=== PATIENT | male | born 1945 | race Caucasian/White ===

== ENCOUNTER 2019-02-20 15:00 | Inpatient (IN) ==
[2019-02-20] MEDS ORDERED: ONDANSETRON 4 MG/2 ML VIAL IV STA (15:47)
[2019-02-20] MEDS ORDERED: AZITHROMYCIN INJ 500 MG in SODIUM CHLORIDE 0.9% 250 ML IV STA (15:47)
[2019-02-20] MEDS ORDERED: SODIUM CHLORIDE 0.9% 500 ML IV STA (15:47)
[2019-02-20] MEDS ORDERED: methylPREDNISolone SOD SUC 125 MG/2 ML VIAL IV STA (15:47)
[2019-02-20] MEDS ORDERED: ALBUTEROL/IPRATROPIUM 3 ML NEB RESP TX STA (15:47)
[2019-02-20 16:12] LABS: Basophils % 0.5 % (0.0-0.8); Eosinophils # 0.1 10*3/uL (0.0-0.87); Eosinophils % 1.4 % (0.00-10.9); Hematocrit 34.8 VOL% (42.0-52.0); Hemoglobin 11.1 GM/DL (14.0-18.0); Immature Granulocytes % 0.7 %; Immature Granulocytes Absolute 0.06 #; Lymphocytes # 1.1 10*3/uL (1.4-4.0); Lymphocytes % 12.4 % (21.2-54.2); Mean Corpuscular HGB Conc 31.9 GM/DL (32-36); Mean Corpuscular Volume 97.5 FL (87-102); Mean Platelet Volume 11.9 FL (9.6-12.0); Monocytes % 10.6 % (1.7-12.7); Neutrophils % 74.4 % (38.7-73.9); Platelet Count 138 T/CUMM (130-400); Red Blood Count 3.57 MC/CUMM (3.8-5.5); Red Cell Distribution Width 12.7 % (9.3-17.3); White Blood Count 8.6 T/CUMM (4-12)
[2019-02-20 16:20] LABS: PT Patient Result 10.4 SECS; Partial Thromboplastin Time 26.4 SECS (0-40)
[2019-02-20 16:34] LABS: Alanine Aminotransferase 34 U/L (16-61); Albumin 2.9 G/DL (3.4-5.0); Alkaline Phosphatase 161 U/L (45-117); Aspartate Amino Transferase 27 U/L (0-37); Blood Urea Nitrogen 40 MG/DL (7-18); Calcium 9.7 MG/DL (8.5-10.1); Glucose 85 MG/DL (74-106); Osmolality,Calculated 289.3 MOS/KG (273-304); Total Protein 7.1 G/DL (6.4-8.3); Troponin I < 0.015 NG/ML (0.00-0.045)
[2019-02-20] MEDS ORDERED: cefTRIAXone 1,000 MG in SODIUM CHLORIDE 0.9% 100 ML IV STA (16:37)
[2019-02-20] MEDS ORDERED: cefTRIAXone 1,000 MG in SYRINGE 1 EACH IV STA (16:42)
[2019-02-20] MEDS ORDERED: POTASSIUM BICARB EFFERVESCENT 25 MEQ TABLET PO ONE (16:48)
[2019-02-20] MEDS ORDERED: DEXTROSE 50% 25 GM/50 ML VIAL IV PRN (17:53)
[2019-02-20] MEDS ORDERED: ACETAMINOPHEN 325 MG TABLET PO PRN (17:53)
[2019-02-20] MEDS ORDERED: GLUCAGON 1 MG VIAL IM PRN (17:53)
[2019-02-20] MEDS ORDERED: ONDANSETRON 4 MG/2 ML VIAL IV PRN (17:53)
[2019-02-20] MEDS: ALBUTEROL/IPRATROPIUM 3 ML NEB RESP TX SCH (20:11)
[2019-02-20] MEDS: METOPROLOL TARTRATE 50 MG TABLET PO SCH (21:02)
[2019-02-20] MEDS: ATORVASTATIN 20 MG TABLET PO SCH (21:03)
[2019-02-20] MEDS: INSULIN REGULAR 100 UNIT/ML SUBCUT SCH (21:05)
[2019-02-21] MEDS: ALBUTEROL/IPRATROPIUM 3 ML NEB RESP TX SCH ×4 (00:46→19:11)
[2019-02-21] MEDS ORDERED: methylPREDNISolone SOD SUC 125 MG/2 ML VIAL IV SCH ×2 (05:00→13:25)
[2019-02-21] MEDS: INSULIN REGULAR 100 UNIT/ML SUBCUT SCH ×4 (08:06→21:00)
[2019-02-21] MEDS: POTASSIUM CHLORIDE 20 MEQ TABLET PO SCH (08:53)
[2019-02-21] MEDS: OLMESARTAN 20 MG TABLET PO SCH (08:53)
[2019-02-21] MEDS: ASPIRIN 325 MG TABLET PO SCH (08:53)
[2019-02-21] MEDS: FUROSEMIDE 40 MG/4 ML VIAL IV SCH (08:54)
[2019-02-21] MEDS: METOPROLOL TARTRATE 50 MG TABLET PO SCH ×2 (08:54→20:59)
[2019-02-21] MEDS: PANTOPRAZOLE 40 MG TABLET PO SCH (08:54)
[2019-02-21] MEDS ORDERED: metOLazone 2.5 MG TABLET PO SCH (09:30)
[2019-02-21] MEDS: FOLIC ACID 0.4 MG TABLET PO SCH (09:51)
[2019-02-21 11:43] LABS: Calcium 9.3 MG/DL (8.5-10.1)
[2019-02-21 12:06] LABS: Apearance,Urine CLEAR (Clear); Bilirubin,Urine Negative (Negative); Blood, Urine Negative (Negative); Glucose,Urine (UA) Negative (Negative); Hyaline Casts,Urine 3 /LPF (0-3); Ketones,Urine Negative (Negative); Mucus,Urine Occasional /LPF (Occasional); Nitrite,Urine Negative (Negative); Protein,Urine Negative; RBC,Urine 1 /HPF (0-4); Squamous Epithelial Cell,Urine Occasional /HPF (0-10); Urine Color Yellow (Yellow); Urine Specific Gravity 1.028 (1.001-1.035); Urine Urobilinogen < 2.0 EU/DL (0.2-1.0); WBC,Urine <1 /HPF (0-6)
[2019-02-21] MEDS: methylPREDNISolone SOD SUC 40 MG/1 ML VIAL IV SCH (14:23)
[2019-02-21] MEDS: AZITHROMYCIN INJ 500 MG in SODIUM CHLORIDE 0.9% 250 ML IV SCH (15:49)
[2019-02-21] MEDS: cefTRIAXone 2,000 MG in SYRINGE 1 EACH IV SCH (18:13)
[2019-02-21] MEDS: ATORVASTATIN 20 MG TABLET PO SCH (20:59)
[2019-02-21] MEDS: TAMSULOSIN 0.4 MG CAPSULE PO SCH (20:59)
[2019-02-21] MEDS: BICALUTAMIDE 50 MG TABLET PO SCH (20:59)
[2019-02-21] MEDS: MEMANTINE 10 MG TABLET PO SCH (20:59)
[2019-02-21] MEDS ORDERED: guaiFENesin/CODEINE 5 ML LIQUID PO PRN (22:04)
[2019-02-21] MEDS: BENZONATATE 100 MG CAPSULE PO SCH (22:16)
[2019-02-22] MEDS: ALBUTEROL/IPRATROPIUM 3 ML NEB RESP TX SCH ×4 (01:48→19:28)
[2019-02-22] MEDS: methylPREDNISolone SOD SUC 40 MG/1 ML VIAL IV SCH ×2 (05:00→13:40)
[2019-02-22] MEDS: INSULIN REGULAR 100 UNIT/ML SUBCUT SCH ×4 (08:43→21:20)
[2019-02-22] MEDS: FUROSEMIDE 40 MG/4 ML VIAL IV SCH (09:27)
[2019-02-22] MEDS: FOLIC ACID 0.4 MG TABLET PO SCH ×2 (09:27→10:10)
[2019-02-22] MEDS: OLMESARTAN 20 MG TABLET PO SCH (09:28)
[2019-02-22] MEDS: BENZONATATE 100 MG CAPSULE PO SCH ×2 (09:28→21:19)
[2019-02-22] MEDS: ASPIRIN 325 MG TABLET PO SCH (09:28)
[2019-02-22] MEDS: PANTOPRAZOLE 40 MG TABLET PO SCH (09:28)
[2019-02-22] MEDS: DEXTROMETHORPHAN ER 6 MG/ML 90 ML/BOTTLE PO SCH ×2 (09:28→21:20)
[2019-02-22] MEDS: METOPROLOL TARTRATE 50 MG TABLET PO SCH ×2 (09:28→21:19)
[2019-02-22] MEDS: POTASSIUM CHLORIDE 20 MEQ TABLET PO SCH (09:28)
[2019-02-22] MEDS: cefTRIAXone 2,000 MG in SYRINGE 1 EACH IV SCH (17:55)
[2019-02-22] MEDS: AZITHROMYCIN INJ 500 MG in SODIUM CHLORIDE 0.9% 250 ML IV SCH (18:00)
[2019-02-22] MEDS ORDERED: ESCITALOPRAM 10 MG TABLET PO SCH (21:00)
[2019-02-22] MEDS: BICALUTAMIDE 50 MG TABLET PO SCH (21:19)
[2019-02-22] MEDS: MEMANTINE 10 MG TABLET PO SCH (21:19)
[2019-02-22] MEDS: ATORVASTATIN 20 MG TABLET PO SCH (21:19)
[2019-02-22] MEDS: TAMSULOSIN 0.4 MG CAPSULE PO SCH (21:19)
[2019-02-23] MEDS: methylPREDNISolone SOD SUC 40 MG/1 ML VIAL IV SCH ×2 (00:17→12:08)
[2019-02-23] MEDS: ALBUTEROL/IPRATROPIUM 3 ML NEB RESP TX SCH ×3 (01:01→13:03)
[2019-02-23 05:13] LABS: Basophils % 0.2 % (0.0-0.8); Hematocrit 35.2 VOL% (42.0-52.0); Hemoglobin 11.8 GM/DL (14.0-18.0); Immature Granulocytes % 2.6 %; Immature Granulocytes Absolute 0.33 #; Lymphocytes # 0.8 10*3/uL (1.4-4.0); Lymphocytes % 5.9 % (21.2-54.2); Mean Corpuscular HGB Conc 33.5 GM/DL (32-36); Mean Corpuscular Volume 94.6 FL (87-102); Mean Platelet Volume 11.3 FL (9.6-12.0); Monocytes % 3.3 % (1.7-12.7); Platelet Count 147 T/CUMM (130-400); Red Blood Count 3.72 MC/CUMM (3.8-5.5); Red Cell Distribution Width 12.3 % (9.3-17.3); White Blood Count 12.9 T/CUMM (4-12)
[2019-02-23 05:43] LABS: Calcium 9.7 MG/DL (8.5-10.1); Osmolality,Calculated 293.1 MOS/KG (273-304)
[2019-02-23] MEDS: INSULIN REGULAR 100 UNIT/ML SUBCUT SCH ×2 (08:45→11:56)
[2019-02-23] MEDS: ASPIRIN 325 MG TABLET PO SCH (09:14)
[2019-02-23] MEDS: OLMESARTAN 20 MG TABLET PO SCH (09:14)
[2019-02-23] MEDS: FOLIC ACID 0.4 MG TABLET PO SCH (09:14)
[2019-02-23] MEDS: METOPROLOL TARTRATE 50 MG TABLET PO SCH (09:14)
[2019-02-23] MEDS: PANTOPRAZOLE 40 MG TABLET PO SCH (09:15)
[2019-02-23] MEDS: BENZONATATE 100 MG CAPSULE PO SCH (09:15)
[2019-02-23] MEDS: POTASSIUM CHLORIDE 20 MEQ TABLET PO SCH (09:15)
[2019-02-23] MEDS: FUROSEMIDE 40 MG/4 ML VIAL IV SCH (09:17)
[2019-02-23] MEDS: DEXTROMETHORPHAN ER 6 MG/ML 90 ML/BOTTLE PO SCH (09:17)
[2019-02-23 12:30] VITALS: BP 114/59
== END 2019-02-23 14:20 | disposition home or self-care (01) | DRG 194 ==
LOC: N.ED 15:00 → N.EDINP 17:52 → N.TELES 18:26
PROVIDERS: ADMIT Family Medicine; ATTEND Family Medicine

== ENCOUNTER 2020-12-12 06:01 | Inpatient (IN) ==
[~2020-12-12 06:01] MED LIST: ASPIRIN 325 MG TABLET PO ONE; DIAZEPAM 5 MG TABLET PO ONE; MAGNESIUM SULF RIDER 2 GM in PREMIX 1 EACH IV PRN; POTASSIUM CHLORIDE RIDER 10 MEQ in PREMIX 1 EACH IV PRN; diphenhydrAMINE CAP 50 MG CAPSULE PO ONE
[2020-12-12] MEDS ORDERED: LIDOCAINE 1% 20 ML VIAL ONE (06:51)
[2020-12-12] MEDS ORDERED: HEPARIN/NACL 0.9% 2 UNITS/ML 500 ML IV ONE ×2 (06:51→08:55)
[2020-12-12] MEDS ORDERED: ASPIRIN 325 MG TABLET ONE (07:10)
[2020-12-12] MEDS ORDERED: diphenhydrAMINE CAP 50 MG CAPSULE ONE (07:10)
[2020-12-12] MEDS ORDERED: DIAZEPAM 5 MG TABLET ONE (07:10)
[2020-12-12] MEDS: SODIUM CHLORIDE 0.9% 1,000 ML IV SCH ×2 (07:14→15:59)
[2020-12-12 07:16] LABS: PT Patient Result 10.6 SECS (9.8-11.9)
[2020-12-12] MEDS ORDERED: HYDROmorphone 2 MG/1 ML VIAL ONE (07:36)
[2020-12-12] MEDS ORDERED: MIDAZOLAM 2 MG/2 ML VIAL ONE (07:37)
[2020-12-12] MEDS ORDERED: diphenhydrAMINE 50 MG/1 ML VIAL ONE (07:50)
[2020-12-12] MEDS ORDERED: BIVALIRUDIN 250 MG VIAL IV ONE (07:56)
[2020-12-12] MEDS ORDERED: NITROPRUSSIDE 50 MG/2 ML VIAL ONE (08:45)
[2020-12-12] MEDS ORDERED: VERAPAMIL 5 MG/2 ML VIAL ONE (08:52)
[2020-12-12] MEDS ORDERED: CLOPIDOGREL 300 MG TABLET ONE (09:16)
[2020-12-12] MEDS ORDERED: ZALEPLON 5 MG CAPSULE PO PRN (09:17)
[2020-12-12] MEDS ORDERED: GLUCAGON 1 MG VIAL IM PRN (09:17)
[2020-12-12] MEDS ORDERED: DEXTROSE 50% 25 GM/50 ML VIAL IV PRN (09:17)
[2020-12-12] MEDS ORDERED: ONDANSETRON 4 MG/2 ML VIAL IV PRN (09:17)
[2020-12-12] MEDS ORDERED: NITROGLYCERIN SL 0.4 MG TABLET SL PRN (09:20)
[2020-12-12 10:25] LABS: Troponin I < 0.015 NG/ML (0.00-0.045)
[2020-12-12] MEDS: TRIAMCINOLONE 0.1% CREAM 15 GM TUBE TOP SCH ×2 (15:17→21:28)
[2020-12-12 17:42] LABS: CKMB % 6.9 %
[2020-12-12 17:46] LABS: Troponin I 2.25 NG/ML (0.00-0.045)
[2020-12-12] MEDS ORDERED: CLOPIDOGREL 75 MG TABLET PO SCH (21:00)
[2020-12-12] MEDS ORDERED: MEMANTINE 10 MG TABLET PO SCH (21:00)
[2020-12-12] MEDS ORDERED: ATORVASTATIN 40 MG TABLET PO SCH (21:00)
[2020-12-12] MEDS ORDERED: CHOLECALCIFEROL 400 UNIT TABLET PO SCH (21:00)
[2020-12-12] MEDS ORDERED: GABAPENTIN 300 MG CAPSULE PO SCH (21:00)
[2020-12-12] MEDS ORDERED: CYANOCOBALAMIN 500 MCG TABLET PO SCH (21:00)
[2020-12-12] MEDS ORDERED: TAMSULOSIN 0.4 MG CAPSULE PO SCH (21:00)
[2020-12-12] MEDS: METOPROLOL TARTRATE 50 MG TABLET PO SCH (21:25)
[2020-12-12] MEDS: FLUTICASONE TOP SCH (21:29)
[2020-12-13] MEDS: SODIUM CHLORIDE 0.9% 1,000 ML IV SCH (01:44)
[2020-12-13 02:16] LABS: Osmolality,Calculated 285.1 MOS/KG (273-304); Potassium 3.5 MMOL/L (3.5-5.1)
[2020-12-13 02:21] LABS: CKMB % 6.3 %
[2020-12-13 02:25] LABS: Troponin I 10.3 NG/ML (0.00-0.045)
[2020-12-13] MEDS ORDERED: POTASSIUM CHLORIDE 20 MEQ TABLET PO SCH (09:00)
[2020-12-13] MEDS ORDERED: FUROSEMIDE 40 MG TABLET PO SCH (09:00)
[2020-12-13] MEDS ORDERED: ESCITALOPRAM 10 MG TABLET PO SCH (09:00)
[2020-12-13] MEDS ORDERED: FOLIC ACID 1 MG TABLET PO SCH (09:00)
[2020-12-13] MEDS: METOPROLOL TARTRATE 50 MG TABLET PO SCH (09:18)
[2020-12-13] MEDS: TRIAMCINOLONE 0.1% CREAM 15 GM TUBE TOP SCH (09:19)
[2020-12-13] MEDS: FLUTICASONE TOP SCH (12:17)
[2020-12-13 12:26] VITALS: BP 125/65
[2020-12-13 13:18] LABS: CKMB % 4.1 %
[2020-12-13 13:19] LABS: Troponin I 11.3 NG/ML (0.00-0.045)
[2020-12-14] MEDS ORDERED: ASPIRIN EC 325 MG TABLET PO SCH (09:00)
== END 2020-12-13 15:19 | disposition home or self-care (01) | DRG 247 ==
LOC: N.CL 06:01 → N.TELES 12:27
PROVIDERS: ADMIT Internal Medicine Cardiovascular Disease; ATTEND Internal Medicine Cardiovascular Disease